=== PATIENT | female | born 1965 | race Asian ===

== ENCOUNTER 2019-03-03 07:39 | Day surgery (SDC) | payer OTHER ==
[~2019-03-03] VITALS: Ht 152.4 cm; Wt 62.4 kg
[2019-03-03] MEDS ORDERED: ACID REFLUX MED (08:50)
[2019-03-03 08:54] VITALS: Ht 152.4 cm; Wt 62.4 kg
[2019-03-03 09:25] VITALS: BP 107/63; PULSE 65; RESP 18
[2019-03-03] MEDS ORDERED: LIDOCAINE 4% SOLUTION 50 ML BTL ONE (09:31)
[2019-03-03] MEDS ORDERED: FENTAnyl 50 MCG/ML VIAL ONE (10:23)
[2019-03-03] MEDS ORDERED: MIDAZOLAM 1 MG/ML 2 ML INJ ONE ×2 (10:23)
[2019-03-03 10:45] VITALS: BP 97/65; RESP 15
== END 2019-03-03 15:40 | disposition home or self-care (01) ==
LOC: GIL 07:39
PROVIDERS: ATTEND Internal Medicine Gastroenterology
DX: Z12.11 Encounter for screening for malignant neoplasm of colon (principal); K20.8 Other esophagitis; K26.3 Acute duodenal ulcer without hemorrhage or perforation; R10.13 Epigastric pain
CPT/HCPCS: 43239; 45378; 88305; 88312; J2250; J3010; Z7610